=== PATIENT | female | born 1940 | race Caucasian/White ===

== ENCOUNTER → 2018-01-18 | Outpatient (CLI) | payer OTHER ==
[~2018-01-18] MED LIST: ACET325T21 PO; ACID1TAB7 PO; CHOL2000 PO; CHOL500045 PO; FLUO10TA PO; FLUO40CA9 PO; FOLI0.8T2 PO; Folic Acid PO; HALO15CR3 TD; HYDR12.547 PO; HYDR1POW19 PO; LEVE500T53 PO; LEVO1CAP2 PO; LEVO7.5T PO; MECL-76 PO; MECL25TA4 PO; MELA3TAB2 PO; METR500T PO; MINE3.5O31 EACHEYE; MULT-257 PO; ONDA4TAB10 PO; OXYC1TAB7 PO; PHEN100C PO; PIRO10CA PO; POTA20TA14 PO; PRAV10TA2 PO; PRAV40TA2 PO; PRED5DRO15 EACHEYE; PROM25SU34 RC; TRAM50TA2 PO; VITA400C14 PO; ZONI100C2 PO; ZONI50CA2 PO
== END | disposition home or self-care (01) ==
LOC: CFH 15:12
DX: M71.22 Synovial cyst of popliteal space [Baker], left knee (principal)

== ENCOUNTER 2018-03-24 11:14 | Inpatient (IN) | payer OTHER ==
[~2018-03-24] VITALS: Ht 157.5 cm; Wt 57.6 kg
--- NOTE | 2018-03-24 11:46 | NUR ---
PT. TO ED WITH C/O DIZZINESS INCREASING IN SEVERITY OVER THE LAST COUPLE OF DAYS RESULTING IN FALLS X 2 OVER THE LAST COUPLE OF DAYS. PT. REPORTS N/V R/T DIZZINESS. DNIES FREEMAN. PT. REPORTS LEFT RIB PAIN FROM FALL. A COUPLE DAYS AGO HIT FACE DURING A FALL BUT DENIES LOC. PT. A&O X 4. EKG DONE IN TRIAGE AND PRESENTED TO ERMD. PT. PLACED ON CONTINUOUS PULSE OX, B/P, AND HEART MONITORS. WARM BLANKET PROVIDED. AT BS. DR. GRIGGS AT BS TO EVAL PT. AND DISCUSS POC.
[2018-03-24] MEDS ORDERED: MIRT30TA6 PO (11:54)
[2018-03-24] MEDS ORDERED: PHEN300C4 PO (11:54)
[2018-03-24] MEDS ORDERED: ZONI100C2 PO (11:54)
[2018-03-24] MEDS ORDERED: OMEP20TA62 PO (11:54)
[2018-03-24] MEDS ORDERED: LORA10TA62 PO (11:54)
[2018-03-24] MEDS ORDERED: MECLIZINE CHEWABLE 25 MG TAB ONE (11:56)
[2018-03-24] MEDS ORDERED: ONDANSETRON ODT 4 MG ONE (11:56)
--- NOTE | 2018-03-24 11:59 | NUR ---
X-RAY COMPLETED. PT. MEDICATED PER JUN. PT. TO CT VIA [facility] AT THIS TIME. WILL OBTAIN IV ACCESS AND DRAW LABS UPON PT. RETURN TO ROOM.
[2018-03-24] MEDS ORDERED: SODIUM CHLORIDE FLUSH 10ML SYR IVF ONE (12:00)
[2018-03-24] MEDS ORDERED: ONDANSETRON ODT 4 MG PO ONE (12:00)
[2018-03-24] MEDS ORDERED: MECLIZINE CHEWABLE 25 MG TAB PO ONE (12:00)
[2018-03-24 12:44] LABS: BASOPHILS # (AUTO) 0.02 x10^3/uL (0-0.1); BASOPHILS % (AUTO) 0 % (0-1); EOSINOPHILS # (AUTO) 0.11 x10^3/uL (0-0.4); EOSINOPHILS % (AUTO) 1 % (1-7); LYMPHOCYTES # (AUTO) 1.35 x10^3/uL (1-3.4); LYMPHOCYTES % (AUTO) 16 % (22-44); MD NO; MEAN CORPUSCULAR HEMOGLOBIN 33.3 pg (27.0-34.8); MEAN CORPUSCULAR HGB CONC 33.4 g/dL (32.4-35.8); MEAN CORPUSCULAR VOLUME 99.6 fL (80-100); MEAN PLATELET VOLUME 7.6 fL (7.4-10.4); MONOCYTES # (AUTO) 0.66 x10^3/uL (0.2-0.8); MONOCYTES % (AUTO) 8 % (2-9); NEUTROPHILS # (AUTO) 6.17 x10^3/uL (1.8-6.8); NEUTROPHILS % (AUTO) 74 % (42-75); PLATELET COUNT 239 x10^3/uL (130-400); RED BLOOD COUNT 4.22 x10^6/uL (3.82-5.3); RED CELL DISTRIBUTION WIDTH 14.1 % (9.6-15.2)
--- NOTE | 2018-03-24 12:56 | NUR ---
PT. RESTING ON GURNEY WITH NADN. PT. REPORTS DIZZINESS HAS IMPROVED BUT IS STILL SLIGHTLY THERE. DENIES NAUSEA. ALL MONITORS REMAIN IN PLACE. CALL LIGHT IN REACH. REMAINS AT BS. SAFETY MEASURES MAINATAINED.
[2018-03-24 13:31] LABS: ALBUMIN 3.3 g/dL (3.4-5.0); ANION GAP 8 mmol/L (5-15); CALCIUM 8.5 mg/dL (8.5-10.1); CHLORIDE 108 mmol/L (98-107)
[2018-03-24 13:34] LABS: ALANINE AMINOTRANSFERASE 26 U/L (12-78); ALKALINE PHOSPHATASE 123 U/L (45-117); BILIRUBIN,TOTAL 0.3 mg/dL (0.2-1.0); CREATININE 0.77 mg/dL (0.55-1.02)
--- NOTE | 2018-03-24 13:55 | NUR ---
PT. RESTING ON GURNEY WITH NADN. STATES DIZZINESS REMAINS BUT IS MUCH IMPROVED. PT. IS REQUESTING FOOD; WILL ASK MD. VS UPDATED. ALL SAFETY MEASURES OBSERVED. CALL LIGHT IN REACH.
[2018-03-24] MEDS ORDERED: SODIUM CHLORIDE FLUSH 10ML SYR IVF PRN (14:30)
--- NOTE | 2018-03-24 14:50 | NUR ---
PT. WENT TO [employer] TO GET SOUP FOR PT. AFTER OK FROM DR. GRIGGS. REPORT TO JODI KAMARA. FLOOR READY FOR PT. TRANSPORT.
[2018-03-24] MEDS ORDERED: PETROLATUM EACHEYE PRN (15:30)
[2018-03-24] MEDS ORDERED: [UNRECOGNIZED DRUG - OTHER] EACHEYE PRN (15:30)
[2018-03-24] MEDS ORDERED: METOCLOPRAMIDE 5 MG/ML, 2ML IVPush PRN (15:30)
[2018-03-24] MEDS ORDERED: ONDANSETRON 2MG/ML, 2ML IVPush PRN (15:30)
[2018-03-24] MEDS ORDERED: POLYETHYLENE GLYCOL 17 GM PACKET PO PRN (15:30)
[2018-03-24] MEDS ORDERED: ENALAPRILAT 1.25 MG/ML, 2ML IVPush PRN (15:30)
[2018-03-24] MEDS ORDERED: ONDANSETRON ODT 4 MG PO PRN (15:30)
[2018-03-24] MEDS ORDERED: ACETAMINOPHEN 325 MG TABLET PO PRN (15:30)
[2018-03-24] MEDS ORDERED: LIDODERM 5% PATCH TD PRN (15:30)
[2018-03-24] MEDS ORDERED: IBUPROFEN 600 MG TABLET PO PRN (15:30)
[2018-03-24] MEDS ORDERED: MINERAL OIL EACHEYE PRN (15:30)
[2018-03-24 16:16] VITALS: BP 147/70
[2018-03-24 19:04] VITALS: BP 125/68
[2018-03-24] MEDS: MIRTAZAPINE 30 MG TAB.RAPDIS PO SCH (20:33)
[2018-03-24] MEDS: ZONISAMIDE 50 MG CAPSULE PO SCH (20:33)
[2018-03-24] MEDS: DOCUSATE 100 MG CAPSULE PO SCH (20:35)
[2018-03-24] MEDS: PRAVASTATIN 20 MG TABLET PO SCH (20:35)
[2018-03-25 00:06] VITALS: BP 126/69
[2018-03-25 05:41] LABS: CHLORIDE 108 mmol/L (98-107)
[2018-03-25 05:47] LABS: ANION GAP 6 mmol/L (5-15); CALCIUM 8.4 mg/dL (8.5-10.1); CREATININE 0.68 mg/dL (0.55-1.02)
[2018-03-25 06:51] VITALS: BP 148/69
[2018-03-25] MEDS ORDERED: OMEPRAZOLE 20 MG CAPSULE.DR PO SCH (07:30)
[2018-03-25] MEDS: FOLIC ACID 1 MG TABLET PO SCH (08:02)
[2018-03-25] MEDS: LORATADINE 10 MG TABLET PO SCH (08:02)
[2018-03-25] MEDS: CHOLECALCIFEROL 5,000u TAB PO SCH (08:02)
[2018-03-25] MEDS: DOCUSATE 100 MG CAPSULE PO SCH ×2 (08:03→21:11)
[2018-03-25] MEDS: BISACODYL 10 MG SUPP PR SCH (08:04)
[2018-03-25] MEDS ORDERED: PRAVASTATIN 20 MG TABLET PO SCH (09:00)
[2018-03-25 14:14] VITALS: BP 139/73
[2018-03-25 20:00] VITALS: BP 148/77
[2018-03-25] MEDS: PRAVASTATIN 20 MG TABLET PO SCH (21:11)
[2018-03-25] MEDS: ZONISAMIDE 50 MG CAPSULE PO SCH (21:11)
[2018-03-25] MEDS: MIRTAZAPINE 30 MG TAB.RAPDIS PO SCH (21:11)
[2018-03-25] MEDS: HYDROCORTISONE CRM 1%, 30GM TP PRN (21:14)
[2018-03-26 02:00] VITALS: BP 131/75
[2018-03-26 07:40] VITALS: BP 151/74
[2018-03-26] MEDS: LORATADINE 10 MG TABLET PO SCH (09:00)
[2018-03-26] MEDS: BISACODYL 10 MG SUPP PR SCH (09:00)
[2018-03-26] MEDS: CHOLECALCIFEROL 5,000u TAB PO SCH (09:15)
[2018-03-26] MEDS: FOLIC ACID 1 MG TABLET PO SCH (09:15)
[2018-03-26] MEDS: DOCUSATE 100 MG CAPSULE PO SCH (09:15)
[2018-03-26] MEDS: HYDROCORTISONE CRM 1%, 30GM TP PRN (09:16)
[2018-03-26] MEDS: HEPARIN 5,000 UNITS/ML, 1ML SQ SCH (12:40)
[2018-03-26 14:00] VITALS: BP 136/78
[2018-03-26] MEDS: LACTOBACILLUS CHEW TABLET PO SCH ×2 (16:46→22:26)
[2018-03-26 19:09] VITALS: BP 131/76
[2018-03-26] MEDS: ZONISAMIDE 50 MG CAPSULE PO SCH (22:26)
[2018-03-26] MEDS: PRAVASTATIN 20 MG TABLET PO SCH (22:26)
[2018-03-26] MEDS: SENNA/DOCUSATE TABLET PO SCH (22:27)
[2018-03-26] MEDS: MIRTAZAPINE 30 MG TAB.RAPDIS PO SCH (22:27)
[2018-03-27] MEDS: HEPARIN 5,000 UNITS/ML, 1ML SQ SCH ×2 (00:41→13:36)
[2018-03-27 01:19] VITALS: BP 146/78
[2018-03-27 07:40] VITALS: BP 142/74
[2018-03-27] MEDS: CHOLECALCIFEROL 5,000u TAB PO SCH (08:11)
[2018-03-27] MEDS: LACTOBACILLUS CHEW TABLET PO SCH ×3 (08:11→21:22)
[2018-03-27] MEDS: LORATADINE 10 MG TABLET PO SCH (08:11)
[2018-03-27] MEDS: SENNA/DOCUSATE TABLET PO SCH ×2 (08:12→21:20)
[2018-03-27] MEDS: FOLIC ACID 1 MG TABLET PO SCH (08:12)
[2018-03-27 13:15] VITALS: BP 196/100
[2018-03-27 19:37] VITALS: BP 120/75
[2018-03-27] MEDS: PRAVASTATIN 20 MG TABLET PO SCH (21:20)
[2018-03-27] MEDS: MIRTAZAPINE 30 MG TAB.RAPDIS PO SCH (21:21)
[2018-03-27] MEDS: ZONISAMIDE 50 MG CAPSULE PO SCH (21:23)
[2018-03-28 00:40] VITALS: BP 124/73
[2018-03-28] MEDS: HEPARIN 5,000 UNITS/ML, 1ML SQ SCH ×2 (01:11→12:35)
[2018-03-28 07:19] VITALS: BP 114/70
[2018-03-28] MEDS: CHOLECALCIFEROL 5,000u TAB PO SCH (08:57)
[2018-03-28] MEDS: SENNA/DOCUSATE TABLET PO SCH ×2 (08:58→20:11)
[2018-03-28] MEDS: LORATADINE 10 MG TABLET PO SCH (08:58)
[2018-03-28] MEDS: FOLIC ACID 1 MG TABLET PO SCH (08:58)
[2018-03-28] MEDS: LACTOBACILLUS CHEW TABLET PO SCH ×3 (08:58→20:10)
[2018-03-28 14:08] VITALS: BP 134/84
[2018-03-28 19:16] VITALS: BP 130/77
[2018-03-28] MEDS: PRAVASTATIN 20 MG TABLET PO SCH (20:08)
[2018-03-28] MEDS: MIRTAZAPINE 30 MG TAB.RAPDIS PO SCH (20:09)
[2018-03-28] MEDS: ZONISAMIDE 50 MG CAPSULE PO SCH (20:10)
[2018-03-28] MEDS ORDERED: PHENYTOIN 100 MG CAPSULE PO SCH (21:00)
[2018-03-29] MEDS: HEPARIN 5,000 UNITS/ML, 1ML SQ SCH ×2 (00:52→12:19)
[2018-03-29 00:59] VITALS: BP 135/62
[2018-03-29 08:00] VITALS: BP 132/65
[2018-03-29] MEDS: FOLIC ACID 1 MG TABLET PO SCH (08:37)
[2018-03-29] MEDS: LACTOBACILLUS CHEW TABLET PO SCH ×2 (08:37→17:10)
[2018-03-29] MEDS: CHOLECALCIFEROL 5,000u TAB PO SCH (08:37)
[2018-03-29] MEDS: SENNA/DOCUSATE TABLET PO SCH (08:37)
[2018-03-29] MEDS: LORATADINE 10 MG TABLET PO SCH (08:37)
[2018-03-29] MEDS ORDERED: PHEN100C PO (13:59)
[2018-03-29] MEDS ORDERED: ACID1TAB7 PO (13:59)
[2018-03-29] MEDS ORDERED: ACET325T14 PO (13:59)
[2018-03-29 14:00] VITALS: BP 128/77
== END 2018-03-29 19:13 | DRG 918 ==
LOC: ED 14:03 → EDIP 14:10 → 4EST 15:21 → 4WST 03-25 17:53
PROVIDERS: ADMIT Internal Medicine; ATTEND Internal Medicine
DX: T42.0X1A Poisoning by hydantoin derivatives, accidental (unintentional), initial encounter (principal); G40.209 Localization-related (focal) (partial) symptomatic epilepsy and epileptic syndromes with complex partial seizures, not intractable, without status epilepticus; I10 Essential (primary) hypertension; E83.119 Hemochromatosis, unspecified; F32.9 Major depressive disorder, single episode, unspecified; K59.09 Other constipation; M41.9 Scoliosis, unspecified; R26.81 Unsteadiness on feet; R42 Dizziness and giddiness; W18.30XA Fall on same level, unspecified, initial encounter; Z66 Do not resuscitate; Z83.3 Family history of diabetes mellitus; Z86.73 Personal history of transient ischemic attack (TIA), and cerebral infarction without residual deficits; Z90.710 Acquired absence of both cervix and uterus; Y92.89 Other specified places as the place of occurrence of the external cause
CPT/HCPCS: 36415; 70450; 71045; 80048; 80053; 80185; 85025; 93005; 99285; G0378; J1644; Q0162

== ENCOUNTER 2018-11-13 07:10 | Outpatient (CLI) | payer MEDICARE ==
[~2018-11-13 07:10] MED LIST changes: +ACET325T14 PO; +LORA10TA62 PO; -MELA3TAB2 PO; +MELA3TAB56 PO; +MIRT30TA97 PO; +OMEP20TA62 PO; +PHEN300C4 PO
== END 2018-11-13 23:59 | disposition home or self-care (01) ==
LOC: CFH 07:10
PROVIDERS: ATTEND Internal Medicine Cardiovascular Disease
DX: I08.8 Other rheumatic multiple valve diseases (principal); I65.23 Occlusion and stenosis of bilateral carotid arteries
CPT/HCPCS: 93306; 93880

== ENCOUNTER → 2019-02-28 | Outpatient (CLI) | payer MEDICARE ==
[~2019-02-28] MED LIST changes: +REGADENOSON 0.4 MG/5 ML SYRINGE ONE
== END | disposition home or self-care (01) ==
LOC: CFH 07:49
PROVIDERS: ATTEND Internal Medicine Cardiovascular Disease
DX: R94.31 Abnormal electrocardiogram [ECG] [EKG] (principal); Z91.040 Latex allergy status; Z88.1 Allergy status to other antibiotic agents; Z88.6 Allergy status to analgesic agent; Z86.73 Personal history of transient ischemic attack (TIA), and cerebral infarction without residual deficits
CPT/HCPCS: 78452; 93017; A9502; J2785

== ENCOUNTER → 2019-09-17 | Outpatient (CLI) | payer MEDICARE ==
[~2019-09-17] MED LIST changes: +ACET-2274 PO; -ACET325T21 PO; +ATOR-2 PO; +CLOP75TA PO; +MECL-101 PO; -MECL25TA4 PO; +MELA3TAB31 PO; -MELA3TAB56 PO; +METH4TAB2 PO; +PEG15DRO4 RIGHTEYE; -REGADENOSON 0.4 MG/5 ML SYRINGE ONE; -ZONI100C2 PO; +ZONI100C29 PO; +ZONI50CA10 PO; -ZONI50CA2 PO
== END | disposition home or self-care (01) ==
LOC: RAD 14:11
DX: M19.041 Primary osteoarthritis, right hand (principal)